=== PATIENT | female | born 1960 | race Asian ===

== ENCOUNTER 2018-02-18 19:07 | Emergency (ER) | payer BC ==
[~2018-02-18] VITALS: Ht 157.5 cm; Wt 63.5 kg
--- NOTE | 2018-02-18 19:30 | NUR ---
Dr. Arias WILLIAMSON MD at bedside for MSE.
--- NOTE | 2018-02-18 20:24 | NUR ---
Patient discharged to home in stable conditon. Written and verbal after care instructions given. Patient verbalizes understanding of instructions.
[2018-02-18 20:25] VITALS: BP 138/88
== END 2018-02-18 20:27 | disposition home or self-care (01) ==
LOC: ER 19:11
DX: H10.9 Unspecified conjunctivitis (principal); I10 Essential (primary) hypertension; J45.909 Unspecified asthma, uncomplicated; E10.9 Type 1 diabetes mellitus without complications; Z87.891 Personal history of nicotine dependence
CPT/HCPCS: 87070; 87077; 99284; A4663